=== PATIENT | female | born 1935 | race Caucasian/White ===

== ENCOUNTER 2016-07-15 09:01 | Inpatient (IN) | payer MEDICARE ==
[~2016-07-15 09:01] MED LIST: BYSTOLIC10 M1 PO; KLONOPIN0.5 M1 PO; LASIX40 M1 PO; LEVOTHYROXINE100 MC1 PO; LOSARTAN POTAS100 M1 PO; NORCO 10-325 T1 EACH PO; NORCO 5-325 TA1 EACH PO; PRADAXA150 M1 PO; PRAVASTATIN SOD40 M1 PO; SINEMET 25-1001 EAC1 PO; TYLENOL325 M2 PO; ULTRAM50 M1 PO; VITAMIN D31000 UNI3 PO
[2016-07-15 10:05] LABS: PROTHROMBIN TIME 11.6 SECONDS (9.0-13.6)
[2016-07-16 05:40] LABS: HCT-HEMATOCRIT 34.9 % (34.0-49.0); HGB-HEMOGLOBIN 11.2 gm/dl (12.0-15.5); IMMATURE GRANULOCYTES ABSOLUTE 0.02 tho/cmm (0-0.03); IMMATURE GRANULOCYTES PERCENT 0.2 % (0-0.3); LYMPH % 4.5 % (20-45); LYMPH ABSOLUTE COUNT 0.4 tho/cmm (0.8-4.5); MCH (MEAN CORPUSCULAR HGB) 30.5 pg (28.0-32.0); MCHC MEAN CORPUSCULAR HGB CONC 32.1 % (32.0-36.0); MCV (MEAN CELL VOLUME) 95.1 fl (82.0-96.0); MEAN PLATELET VOLUME 10.9 cmc (9.4-12.4); MONO % 5.8 % (0-12); MONOCYTE ABSOLUTE COUNT 0.5 tho/cmm (0.0-1.2); NEUTROPHIL ABSOLUTE COUNT 7.8 tho/cmm (1.6-8.0); NEUTROPHIL-AUTOMATED 7.8 tho/cmm (1.6-8.0); NEUTROPHILS % 89.5 % (40-80); PLATELET COUNT 165 tho/cmm (150-450); RED BLOOD COUNT 3.67 mil/cmm (4.00-5.20); RED CELL DISTRIBUTION WIDTH 13.8 % (12.4-16.4); WHITE BLOOD COUNT 8.7 tho/cmm (4.0-10.0)
[2016-07-17] MEDS ORDERED: ROXICODONE5 M2 PO (11:05)
[2016-07-17] MEDS ORDERED: CELEBREX200 M1 PO (11:06)
== END 2016-07-17 12:17 | DRG 470 ==
LOC: SHSC 09:01 → ORE 11:24 → PACU 13:19 → 5EA 14:55
PROVIDERS: Physician Assistant Surgical; ADMIT Orthopaedic Surgery Foot and Ankle Surgery
PROC: 0SRC0J9 Replacement of Right Knee Joint with Synthetic Substitute, Cemented, Open Approach (ICD-10-PCS; principal; 2016-07-15)
DX: M17.11 Unilateral primary osteoarthritis, right knee (principal); E66.01 Morbid (severe) obesity due to excess calories; J44.9 Chronic obstructive pulmonary disease, unspecified; I48.2 Chronic atrial fibrillation; G25.81 Restless legs syndrome; I10 Essential (primary) hypertension; E55.9 Vitamin D deficiency, unspecified; E78.5 Hyperlipidemia, unspecified; E03.9 Hypothyroidism, unspecified; H91.90 Unspecified hearing loss, unspecified ear; Z68.36 Body mass index [BMI] 36.0-36.9, adult; Z79.01 Long term (current) use of anticoagulants; I25.10 Atherosclerotic heart disease of native coronary artery without angina pectoris
CPT/HCPCS: C1713; C1776; J0171; J0690; J1885; J2270; J2795; J3010